=== PATIENT | male | born 1990 | race African-American/Black ===

== ENCOUNTER 2017-11-17 22:57 | Emergency (ER) | payer OTHER ==
[~2017-11-17] VITALS: Ht 182.9 cm; Wt 104.3 kg
[2017-11-17 23:29] VITALS: BP 144/80
--- NOTE | 2017-11-17 23:44 | NUR ---
Spoke to Rudy with Po[facility] Control about pts exposure to H2S, recommendations include symptomatic care, CXR, respiratory treatments, EKG as indicated, may need 24-48hr follow up to ensure no further issues, reported treatment suggestions to Dr. Maria as requested.
--- NOTE | 2017-11-18 00:06 | DIREP ---
PROCEDURE:CHEST 2 VIEWS COMPARISON:None. INDICATIONS:Short of breath, H2S exposure FINDINGS: LUNGS/PLEURA:No significant pulmonary parenchymal abnormalities. No effusions. VASCULATURE:Normal. Unremarkable pulmonary vasculature. CARDIAC:Normal. No cardiac silhouette abnormality or cardiomegaly. MEDIASTINUM:Normal. No visible mass or adenopathy. BONES:Normal. No fracture or visible bony lesion. OTHER:Negative. CONCLUSION:Normal examination. Dictated by: Tushar Weber M.D. on 11/18/2017 at 00:05 AM
[2017-11-18] MEDS ORDERED: DUONEB 0.5 MG-3 MG/3 ML SOLN IH STA (00:17)
[2017-11-18] MEDS ORDERED: DUONEB 0.5 MG-3 MG/3 ML SOLN IH ONE (00:26)
--- NOTE | 2017-11-18 00:36 | PCM.EKG ---
[facility] Test Date: 2017-11-18 Test Time: 00:36:29 Pat Name: ABIMBOLA SIU Department: Patient ID: [id number] Room: Gender: M Cd Mixer: RADHIKA : 1990 Requested By: JAZMYNE GALARZA Order Number: [id number] Reading MD: Jazmyne GALARZA Measurements Intervals [place] Rate: 58 P: 74 AR: 162 QRS: 57 QRSD: 92 T: 43 QT: 440 QTc: 431 Interpretive Statements Sinus bradycardia with sinus arrhythmia Otherwise normal ECG No previous ECG available for comparison Electronically Signed On 11-20-2017 21:57:46 CDT by Jazmyne GALARZA Please click the below link to view image of tracing.
--- NOTE | 2017-11-18 01:13 | ER.PDOC ---
General Chief Complaint: Dyspnea/Respdistress Stated Complaint: LUNGS BURNING TRAVEL OUT OF US: No Time seen by MD: 00:30 Source: patient Exam Limitations: no limitations History of Present Illness Initial Comments Lungs burning and SOB for 3 hours. Inhaled H2S at work yesterday Severity: moderate Associated Symptoms: shortness of breath Allergies: Coded Allergies: sunflower seed (Verified Allergy, Severe, Anaphylaxis Shock, 11/17/17) Throat closes up Past Medical History Medical History: no pertinent history Surgical History: no surgical history Social History Smoking: non-smoker Alcohol Use: none Drug Use: none Review of Systems Constitutional: no symptoms reported EENTM: no symptoms reported Respiratory: see HPI Cardiovascular: no symptoms reported Gastrointestinal: no symptoms reported Genitourinary: no symptoms reported All Other Systems: Reviewed and Negative Physical Exam General Appearance: No Apparent Distress Neck: Non-Tender, Full Range of Motion, Supple, Normal Inspection Respiratory: chest non-tender, lungs clear, normal breath sounds, no respiratory distress, no accessory muscle use CVS: reg rate & rhythm, no murmur, no gallop, pulses nml, nml capillary refill Gastrointestinal: Normal Bowel Sounds, No Organomegaly, No Pulsatile Mass, Non Tender Back: Normal Inspection Extremities: Normal Range of Motion Neurologic/Psychiatric: patient navigator II-XII NML as Tested Skin: Normal Color Lymphatic: No Adenopathy Results/Orders Results/Orders Administered Medications Medications (Trade) Dose Ordered Sig/Dany Route PRN Reason Start Time Stop Time Status Last Admin Dose Admin Albuterol/ Ipratropium (Duoneb 0.5 Mg-3 Mg/3 ml Soln) 3 ml STAT STAT IH 11/18/17 00:17 11/18/17 00:18 DC 11/18/17 00:31 Progress Progress Patient feeling better after a breathing treatment. Refused to be admitted for observation. EKG/XRAY/CT/US EKG: NSR XRAY: chest (Normal) Departure Time of Disposition: 01:10 Disposition: 01 HOME, SELF-CARE Impression: Primary Impression: Dyspnea Qualified Codes: R06.00 - Dyspnea, unspecified Additional Impression: Exposure to gaseous substance Condition: Improved Referrals: PCP,UNKNOWN (PCP) PRIMARY CARE PROVIDER Additional Instructions: F/U with PCP in 2-3 days Duration or Time Spent with Pa: 60 mins JAZMYNE GALARZA MD Nov 18, 2017 01:13
[2017-11-18 01:23] VITALS: BP 132/74
== END 2017-11-18 01:22 | disposition home or self-care (01) ==
LOC: ER 22:57
DX: R06.00 Dyspnea, unspecified (principal); Z57.5 Occupational exposure to toxic agents in other industries; Z88.8 Allergy status to other drugs, medicaments and biological substances
CPT/HCPCS: 71046; 93005; 94640; 99284; J7620